=== PATIENT | female | born 1965 | race Caucasian/White ===

== ENCOUNTER → 2016-07-29 | Outpatient (REF) | payer OTHER ==
[2016-07-29 19:44] LABS: REASON FOR REVIEW COMPREHENSIVE REVIEW
== END | disposition home or self-care (01) ==
LOC: M LAB REF 16:33
PROVIDERS: ATTEND Internal Medicine Medical Oncology
DX: D75.89 Other specified diseases of blood and blood-forming organs (principal); D72.829 Elevated white blood cell count, unspecified

== ENCOUNTER → 2017-10-07 | Outpatient (REF) | payer OTHER | LOC: M LAB REF 16:48 | DX: D72.829 Elevated white blood cell count, unspecified (principal) | CPT/HCPCS: 88300 ==